=== PATIENT | male | born 1975 | race Caucasian/White ===

== ENCOUNTER 2021-04-21 10:44 | Emergency (ER) | payer OTHER ==
[~2021-04-21 10:44] MED LIST: FLEXERIL5 MG PO; NAPROXEN500 MG PO
[2021-04-21 12:26] LABS: ALBUMIN 4.2 g/dL (3.4-5.0); ALKALINE PHOSHATASE 75 U/L (46-116); ALT 28 U/L (16-63); AST 30 U/L (15-37); BILIRUBIN - TOTAL 0.5 mg/dL (0.2-1.0); BUN 12 mg/dL (7-18); BUN/CREAT RATIO (CALC) 12.2 RATIO; CHLORIDE 103 mmol/L (98-107); CO2 (BICARBONATE) 24 mmol/L (21-32); CREATININE 0.98 mg/dL (0.67-1.17); GLOBULIN (CALCULATION) 3.2 g/dL; GLUCOSE 93 mg/dL (74-106); POTASSIUM 3.6 mmol/L (3.5-5.1); TOTAL PROTEIN 7.4 g/dL (6.4-8.2)
[2021-04-21 12:33] LABS: BASOPHIL 0.5 % (0-2); EOSINOPHIL 1.3 % (0-5); HGB 15.6 g/dl (13.2-18.0); LYMPHOCYTE 9.5 % (15-48); MCH 30.5 pg (25.0-31.0); MCHC 33.9 g/dL (32.0-36.0); MONOCYTE 12.9 % (0-12); NEUTROPHIL 75.7 % (41-80); NRBC 0; PLT 223 K/uL (150-400); RBC 5.11 M/uL (4.70-6.00); RDW 12.6 % (11.5-14.0); WBC 8.2 K/uL (4.0-10.5)
== END 2021-04-21 15:15 | disposition home or self-care (01) ==
LOC: FER 10:44
PROVIDERS: Emergency Medicine
DX: U07.1 COVID-19 (principal); R07.89 Other chest pain; F17.200 Nicotine dependence, unspecified, uncomplicated
CPT/HCPCS: 36415; 71045; 80053; 84484; 85025; 85379; 93005; 94640; U0002

== ENCOUNTER 2021-12-25 22:00 | Emergency (ER) | payer OTHER ==
[2021-12-25 23:28] LABS: BASOPHIL 0.7 % (0-2); EOSINOPHIL 3.2 % (0-5); HCT 40.9 % (42.0-52.0); HGB 13.9 g/dl (13.2-18.0); LYMPHOCYTE 36.8 % (15-48); MCV 88.3 fL (78.0-100.0); MONOCYTE 10.1 % (0-12); MPV 8.8 fL (6.0-9.5); NEUTROPHIL 48.9 % (41-80); NRBC 0; PLT 321 K/uL (150-400); RBC 4.63 M/uL (4.70-6.00); RDW 12.9 % (11.5-14.0); WBC 10.6 K/uL (4.0-10.5)
[2021-12-25 23:54] LABS: ALBUMIN 3.6 g/dL (3.4-5.0); BILIRUBIN - TOTAL 0.2 mg/dL (0.2-1.0); CREATININE 0.84 mg/dL (0.67-1.17); GLOBULIN (CALCULATION) 2.5 g/dL; POTASSIUM 4.3 mmol/L (3.5-5.1); TOTAL PROTEIN 6.1 g/dL (6.4-8.2)
[2021-12-26 01:24] LABS: BILIRUBIN NEGATIVE (NEGATIVE); BLOOD NEGATIVE Ery/uL (NEGATIVE); CLARITY CLEAR (CLEAR); COLOR YELLOW (YELLOW); GLUCOSE (U) NORMAL (NORMAL); LEUKOCYTES NEGATIVE Leu/uL (NEGATIVE); NITRITE NEGATIVE (NEGATIVE); PROTEIN NEGATIVE (NEGATIVE); SPECIFIC GRAVITY 1.015 (1.001-1.030); UROBILINOGEN 0.2 mg/dL (0.2-1.0)
[2021-12-26 01:32] LABS: MARIJUANA (THC) POSITIVE (NEGATIVE)
[2021-12-26 01:33] LABS: AMPHETAMINES POSITIVE (NEGATIVE); BARBITURATES NEGATIVE (NEGATIVE); ECSTASY (MDMA) NEGATIVE (NEGATIVE); METHADONE NEGATIVE (NEGATIVE); OPIATES POSITIVE (NEGATIVE)
[2021-12-26 01:34] LABS: OXYCODONE NEGATIVE (NEGATIVE)
[2021-12-26] MEDS ORDERED: NORCO 5-325 TA1 EACH PO ×2 (02:23→02:26)
[2021-12-26] MEDS ORDERED: ANUCORT-HC25 MG PR (02:23)
[2021-12-26] MEDS ORDERED: ANUSOL-HC25 MG PR (02:26)
== END 2021-12-26 02:30 | disposition home or self-care (01) ==
LOC: FER 22:00
PROVIDERS: Emergency Medicine
DX: K64.9 Unspecified hemorrhoids (principal); I10 Essential (primary) hypertension; Z79.899 Other long term (current) drug therapy; Z79.1 Long term (current) use of non-steroidal anti-inflammatories (NSAID)
CPT/HCPCS: 36415; 80053; 80305; 81003; 82150; 83690; 85025; G0480; J1170; J2270; J2405; J7030; Q9967